=== PATIENT | male | born 1980 ===

== ENCOUNTER → 2016-11-14 | Emergency (ER) ==
[~2016-11-14] MED LIST: ONDANSETRON 2MG/ML, 2ML ONE
[2016-11-16 12:50] LABS: BLOOD UREA NITROGEN 14 mg/dL (7-18)
== END ==
LOC: ED 12:34
DX: K52.9 Noninfective gastroenteritis and colitis, unspecified (principal); F17.210 Nicotine dependence, cigarettes, uncomplicated
CPT/HCPCS: 36415; 74176; 80069; 81003; 85025